=== PATIENT | male | born 1935 | race Caucasian/White ===

== ENCOUNTER → 2017-11-24 | Outpatient (CLI) | payer OTHER, MEDICARE ==
[~2017-11-24] VITALS: Ht 188 cm; Wt 93.0 kg
[~2017-11-24] MED LIST: ASPIR 8181 MG PO; RAMIPRIL2.5 MG PO; VITAMIN D1000 UNI2 PO; ZOCOR20 MG PO
--- NOTE | ~2017-11-24 | S ---
[facility] [place] [address] SURGICAL PATH RPT PROCEDURE Name: BAM TOBAR Room #: REG Jc M.R.#: [id number] Admission: 11/24/17 Date of : 39 Discharge: Report #: [id number] Path Case #: [id number] PATHOLOGY REPORT COLLECTION DATE: 11/24/2017 RECEIVED DATE: 11/24/2017 SUBMITTING PHYS: Dr. Dimitry Marina OTHER PHYS: Dr. Jaden Henderson SPECIMEN(S) RECEIVED: A.Bx random proximal colon B.Polyp at distal transverse colon C.Bx distal colon and rectum * * * * * * * * * * * * FINAL DIAGNOSIS: A. "BX random proximal colon", biopsy: - Colonic mucosa with mild reactive changes and focal active colitis; no dysplasia seen. (see comment). B. "Polyp at distal transverse colon", biopsy: - Tubular adenoma; no high grade dysplasia. C. "BX distal colon and rectum", biopsy: - Colonic mucosa with mild reactive and hyperplastic changes; no evidence of active, lymphocytic or collagenous colitis. COMMENT: Focal active colitis can be seen in resolving infectious type colitis, incidentally with bowel preparation and quiescent chronic idiopathic inflammatory bowel disease. No increase in chronic inflammation or chronic architectural changes are identified. Clinical and endoscopic correlation is recommended. (CLW:shabana; 11/25/2017) PATHOLOGIST: Inna Soni M.D. REPORT ELECTRONICALLY SIGNED BY: Inna Soni M.D. DATE/TIME: 11/25/2017 11:31 * * * * * * * * * * * * GROSS PATHOLOGY: A. Received in formalin labeled "Bam Tobar, BX random proximal colon, rule out colitis," are 7 segments of rodriguez soft tissue measuring 2.1 x 2.6 x 0.3 cm in aggregate dimensions and ranging from 0.3 to 0.5 cm in maximum dimension. The specimen is submitted entirely in cassette A1. B. Received in formalin labeled "Bam Tobar, polyp at distal transverse colon," is a segment of rodriguez soft tissue measuring 0.[address] [address] SURGICAL PATH RPT PROCEDURE Name: BAM TOBAR [id number]mission: 11/24/17 Date of : 39 Discharge: Report #: [id number] Path Case #: [id number] in maximum dimension. The specimen is submitted entirely in cassette B1. C. Received in formalin labeled "Bam Tobar, BX distal colon and rectum, rule out colitis," are multiple (more than 10) segments of rodriguez soft tissue measuring 2.1 x 0.6 x 0.2 cm in aggregate dimensions and ranging from 0.2 to 0.4 cm in maximum dimension. The specimen is submitted entirely in cassette C1. (TSD; 11/24/2017) CLINICAL HISTORY: Pre-OP DX: Hx polyps, diarrhea Post-OP DX: Colon polyps INITIAL CPT CODE(S): A; 86402 B; 72846 C; 91062 Professional services performed by [facility] at [facility] [address], [place] [address] Technical services performed by [facility] at [address] [place] [address], [address], [place] [address]. [facility] [address] [place] [address] PHONE: [phone] DIRECTOR: Oleg Hemphill M.D. * * * END OF REPORT * * *
--- NOTE | ~2017-11-24 | P ---
[facility] [place] [address] PROCEDURE REPORT Name: ALDEN ELENA Room #: REG [facility].#: [id number] Admission: 11/24/17 Attend Phys: Dimitry Marina MD Discharge: Date of : 39 Report #: [id number] THIS REPORT FOR: //name// CC: Jaden Marina OUTPATIENT COLONOSCOPY BRIEF HISTORY: The patient is an 82-year-old male who now reports change in bowel habits with increasing diarrhea. He has seen a small amount of blood on occasion. PREOPERATIVE DIAGNOSES: Modification in bowel habits and rectal bleeding. POSTOPERATIVE DIAGNOSES: Colon polyp and small hemorrhoids. MEDICATIONS: Deep sedation with propofol per Anesthesia. SPECIMENS: 1. Random biopsies of proximal colon, rule out colitis. 2. Colon polyp, mid transverse colon. 3. Random biopsies, distal colon and rectum. ESTIMATED BLOOD LOSS: 3 mL. PROCEDURE: Colonoscopy to cecum and terminal ileum with biopsy. FINDINGS: Prior to propofol sedation, procedure of colonoscopy was reviewed with the patient as well as potential risks, benefits, and complications. He indicates he understands and desires to proceed. DESCRIPTION OF PROCEDURE: With the patient in left lateral decubitus position, digital examination was completed, which revealed no abnormalities. Subsequently, the [employer] video colonoscope was introduced into the rectum, advanced under direct vision to the cecum. Done with minimal difficulty. The cecum was identified by the ileocecal valve and the appendiceal orifice. I was also able to visualize the distal segment of terminal ileum, which was inspected and noted to be unremarkable. At that point, the scope was slowly withdrawn and careful circumferential views obtained including retroflexing the scope in the ascending colon. Upon slow withdrawal of the scope, the mucosa was inspected. The prep was good. The mucosa was within normal limits, normal vascular pattern and normal light reflex. As we withdrew the scope, the mucosa was normal and normal throughout the entire colon. Normal vascular pattern and normal light reflex. Random biopsies were obtained. In addition, in the mid transverse colon, a diminutive polyp was seen and removed by biopsy. The scope was withdrawn. The patient tolerated the procedure well. [facility] [address] [place] [address] PROCEDURE REPORT Name: ULICESALDEN Room #: REG [facility].#: [id number] Admission: 11/24/17 Attend Phys: Dimitry Marina MD Discharge: Date of : 39 Report #: [id number] CONDITION OF THE PATIENT UPON DISCHARGE: Following procedure, the patient drowsy, arousable, conversant and will be discharged to home when fully ambulatory. INSTRUCTIONS TO THE PATIENT AND FAMILY AT THE TIME OF DISCHARGE: No obvious inflammatory changes. We will follow up on biopsies and make further recommendations. We will also obtain a celiac screen if not previously done. At this point in time, suggest Imodium as needed and daily if needed. If he does have microscopic inflammatory changes, further treatment such as budesonide may be helpful. Also, advised and watch for potential dietary intolerances. In addition, a probiotic also may be helpful. If symptoms persist, he should return to our office to follow up with nurse practitioner for further evaluation if needed. The patient's last colonoscopy was a little less than 3 years ago. He has had a family history of colon cancer in his father and a personal history of colon polyps. Procedure was done today due to a new symptom of change in bowel habits. Withdrawal time from the cecum today was 19 minutes 37 seconds. <ELECTRONICALLY SIGNED> By: Dimitry Marina MD 11/24/17 [id number] Dimitry Marina MD /nt
== END | disposition home or self-care (01) ==
LOC: GI 06:57
DX: D12.3 Benign neoplasm of transverse colon (principal); K63.89 Other specified diseases of intestine; I10 Essential (primary) hypertension; E78.5 Hyperlipidemia, unspecified; Z95.5 Presence of coronary angioplasty implant and graft; Z87.891 Personal history of nicotine dependence; Z85.828 Personal history of other malignant neoplasm of skin; Z90.49 Acquired absence of other specified parts of digestive tract; Z96.653 Presence of artificial knee joint, bilateral; Z98.890 Other specified postprocedural states; Z79.82 Long term (current) use of aspirin; Z79.899 Other long term (current) drug therapy
CPT/HCPCS: 62110; 62900

== ENCOUNTER → 2020-01-14 | Outpatient (CLI) | payer OTHER | LOC: SJCVCIMAG 09:28 | DX: I08.1 Rheumatic disorders of both mitral and tricuspid valves (principal); I65.23 Occlusion and stenosis of bilateral carotid arteries; E78.00 Pure hypercholesterolemia, unspecified; I25.10 Atherosclerotic heart disease of native coronary artery without angina pectoris; I10 Essential (primary) hypertension; Z98.61 Coronary angioplasty status ==

== ENCOUNTER → 2021-01-13 | Outpatient (CLI) | payer OTHER | LOC: SJCVC 12:01 | PROVIDERS: ATTEND Internal Medicine Cardiovascular Disease | DX: R94.31 Abnormal electrocardiogram [ECG] [EKG] (principal); I25.10 Atherosclerotic heart disease of native coronary artery without angina pectoris; I10 Essential (primary) hypertension; E78.00 Pure hypercholesterolemia, unspecified; I65.23 Occlusion and stenosis of bilateral carotid arteries; N40.0 Benign prostatic hyperplasia without lower urinary tract symptoms; E55.9 Vitamin D deficiency, unspecified; E78.5 Hyperlipidemia, unspecified; Z86.010 Personal history of colon polyps; Z87.891 Personal history of nicotine dependence; Z72.89 Other problems related to lifestyle; Z79.82 Long term (current) use of aspirin; Z79.899 Other long term (current) drug therapy ==

== ENCOUNTER → 2021-07-27 | Outpatient (CLI) | payer OTHER | LOC: SJCVCIMAG 09:53 | PROVIDERS: ATTEND Internal Medicine Cardiovascular Disease | DX: I08.1 Rheumatic disorders of both mitral and tricuspid valves (principal); I25.10 Atherosclerotic heart disease of native coronary artery without angina pectoris; I10 Essential (primary) hypertension; E78.00 Pure hypercholesterolemia, unspecified; Z79.82 Long term (current) use of aspirin; Z79.899 Other long term (current) drug therapy; Z72.89 Other problems related to lifestyle; Z87.891 Personal history of nicotine dependence ==